=== PATIENT | female | born 1965 | race Caucasian/White ===

== ENCOUNTER → 2016-05-13 | Outpatient (CLI) | payer OTHER ==
[~2016-05-13] VITALS: Ht 163.2 cm; Wt 72.6 kg
[~2016-05-13] MED LIST: BIOTIN 5000MCG PO; BIOTIN1000 MICRO PO; CALCIUM 500 +1 EACH PO; CITALOPRAM HBR20 MG PO; ESTROVEN 155 M155 MG PO; MOTRIN800 MG PO; MULTIVITAMIN1 EAC2 PO; PERCOCET 5/31 TABLET PO; SKELAXIN800 MG PO; VITAMIN D-32000 UNI2 PO
== END | disposition home or self-care (01) ==
LOC: AMB 11:28
DX: Z12.11 Encounter for screening for malignant neoplasm of colon (principal); K13.79 Other lesions of oral mucosa; K64.8 Other hemorrhoids; F41.8 Other specified anxiety disorders; E78.5 Hyperlipidemia, unspecified; Z82.49 Family history of ischemic heart disease and other diseases of the circulatory system; Z83.3 Family history of diabetes mellitus; Z82.69 Family history of other diseases of the musculoskeletal system and connective tissue
CPT/HCPCS: B4087; J2250; J3010